=== PATIENT | female | born 2005 | race African-American/Black ===

== ENCOUNTER 2025-07-08 19:39 | Emergency (ER) | payer MEDICAID ==
[~2025-07-08] VITALS: Ht 160 cm; Wt 93.9 kg
--- NOTE | 2025-07-08 19:55 | ED.PDOC ---
GI ASSESSMENT HPI Comments 19 y.o female presents to the ED for a chief complaint of suprapubic pain that started one day ago. Patient describes pain as sharp, constant, non radiating and rating a 9/10 on the pain scale. Patient mentions having diarrhea 4 days ago but none the past 1-2 days. She denies any dysuria, hematuria, nausea, vomiting, fever, chills, vaginal discharge or bleeding. 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 MACHINE OPERATOR History Family History Family History: Reviewed,noncontributory to illness Social History Smoker: Non-Smoker Alcohol: Denies ETOH Use Drugs: Denies Drug Use Lives In: Home Constitutional: denies: chills, diaphoresis, fatigue, fever, malaise, sweats, weakness, others EENTM: denies: blurred vision, double vision, ear bleeding, ear discharge, ear drainage, ear pain, ear ringing, eye pain, eye redness, hearing loss, mouth pain, mouth swelling, nasal discharge, nose bleeding, nose congestion, nose pain, photophobia, tearing, throat pain, throat swelling, voice changes, others Respiratory: denies: cough, hemoptysis, orthopnea, SOB at rest, shortness of breath, SOB with excertion, stridor, wheezing, others Cardiovascular: denies: chest pain, dizzy spells, diaphoresis, Dyspnea on exertion, edema, irregular heart beat, left arm pain, lightheadedness, palpitations, PND, syncope, others Gastrointestinal: reports: abdominal pain; denies: abdomen distended, blood streaked bowels, constipated, diarrhea, dysphagia, difficulty swallowing, hematemesis, melena, nausea, poor appetite, poor fluid intake, rectal bleeding, rectal pain, vomiting, others Genitourinary: denies: abnormal vagina bleeding, burning, dyspareunia, dysuria, flank pain, frequency, hematuria, incontinence, pain, , vagina discharge, urgency, others Neurological: denies: dizziness, fainting, headache, left sided numbness, left sided weakness, numbness, paresthesia, pre-existing deficit, right sided numbness, right sided weakness, seizure, speech problems, tingling, tremors, weakness, others Musculoskeletal: denies: back pain, gout, joint pain, joint swelling, muscle pain, muscle stiffness, neck pain, others Integumetry: denies: bruises, change in color, change in hair/nails, dryness, laceration, lesions, lumps, rash, wounds, others Allergic/Immunocompromised: denies: Difficulty Healing, Frequent Infections, Hives, Itching, others Hematologic/Lymphatic: denies: anemia, blood clots, easy bleeding, easy bru ising, swollen glands, others Endocrine: denies: excessive hunger, excessive sweating, excessive thirst, e xcessive urination, flushing, intolerance to cold, intolerance to heat, unexplained weight gain, unexplained weight loss, others Psychiatric: denies: anxiety, bipolar disorder, depression, hopeless, panic disorder, schizophrenia, sleepless, suicidal, others All Other Systems: Reviewed and Negative Physical Exam General Appearance: Mild Distress HEENT: Normal ENT Inspection Neck: Normal Inspection Respiratory: No Accessory Muscle Use, No Respiratory Distress Cardiovascular: Normal Peripheral Pulses, Regular Rate/Rhythm Breast Exam: Deferred Gastrointestinal: No Pulsatile Mass, Suprapubic, Tenderness Genitalia: Deferred Pelvic: Deferred Rectal: Deferred Extremities: Normal inspection Neurologic: Alert, Normal Affect, Normal Mood Cerebellar Function: Unable to Test Reflexes: NOT DONE Skin: Dry, Normal Color, Warm Lymphatic: NOT DONE Was a procedure done? Was a procedure done?: No GI differential Dx Differential Diagnosis: Diverticular disease, Esophagitis, Gastroenteritis, Inflammatory BD, Ovarian cyst/torsion, PID, Electrolyte Imbalance, Viral X-Ray, Labs, Meds, VS Vital Signs Date Time Temp Pulse Resp B/P (MAP) Pulse Ox O2 Delivery O2 Flow Rate FiO2 07/08/25 23:00 98.7 89 14 99/59 (72) 95 98.7 07/08/25 19:42 99.5 92 19 104/71 97 99.5 Lab Test 07/08/25 20:16 Range/Units White Blood Count 12.4 H 4.4-10.8 10^3/uL Red Blood Count 4.34 4.0-5.20 10^6/uL Hemoglobin 13.1 12.2-16.2 g/dL Hematocrit 38.3 36.0-46.0 % Mean Corpuscular Volume 88.2 80.0-100.0 fL Mean Corpuscular Hemoglobin 30.0 28.0-32.0 pg Mean Corpuscular Hemoglobin Concent 34.1 32.0-36.0 g/dL Red Cell Distribution Width 13.8 11.8-14.3 % Platelet Count 356 140-450 10^3/uL Mean Platelet Volume 8.2 6.9-10.8 fL Neutrophils (%) (Auto) 55.5 37.0-80.0 % Lymphocytes (%) (Auto) 35.5 10.0-50.0 % Monocytes (%) (Auto) 5.1 0.0-12.0 % Eosinophils (%) (Auto) 3.3 0.0-7.0 % Basophils (%) (Auto) 0.6 0.0-2.0 % Neutrophils # (Auto) 6.9 1.6-8.6 10 ^3/uL Lymphocytes # (Auto) 4.4 0.4-5.4 10 ^3/uL Monocytes # (Auto) 0.6 0-1.3 10 ^3/uL Eosinophils # (Auto) 0.4 0-0.8 10 ^3/uL Basophils # (Auto) 0.1 0-0.2 10 ^3/uL Nucleated Red Blood Cells 0.0 % Sodium Level 142 136-145 mmol/L Potassium Level 4.0 3.5-5.1 mmol/L Chloride Level 108 H 98-107 mmol/L Carbon Dioxide Level 25 20-31 mmol/L Anion Gap 9 5-15 Blood Urea Nitrogen 7 L 9-23 mg/dL Creatinine 0.84 0.550-1.02 mg/dL Glomerular Filtration Rate Calc 103 >90 mL/min BUN/Creatinine Ratio 8.3 L 10.0-20.0 Serum Glucose 92 74-106 mg/dL Calcium Level 9.4 8.7-10.4 mg/dL Total Bilirubin 0.2 0.2-1.0 mg/dL Aspartate Amino Transferase (AST) 19 13-40 U/L Alanine Aminotransferase (ALT) 17 7-40 U/L Alkaline Phosphatase 73 46-116 U/L Total Protein 7.9 5.7-8.2 g/dL Albumin 4.9 H 3.2-4.8 g/dL Beta HCG, Quantitative < 0.0 L 1.5-4.2 mIU/mL Time of 1ST Reevaluation: 19:52 Reevaluation 1ST: Unchanged Patient Education/Counseling: Diagnosis, Treatment Family Education/Counseling: No Family Present SEPSIS Sepsis Screen Date sepsis recognized/suspect: Jul 08, 2025 Time Sepsis recognized/suspect: 1941 Recent Procedure: No On Antibiotic Therapy: No Respiratory Rate >20: No Heart Rate >90: No Temp<36 C (96.8 F) or >38.3 C: No SBP <90 or MAP <65 mmHG: No New Acute Mental Status Change: No Is the patient on CPAP, BIPAP,: No Physician Orders Urinalysis (07/08/25 19:55) Pelvic (07/08/25 19:55) Urine Bacterial Culture (07/08/25 19:55) Vital Signs Date Time Temp Pulse Resp B/P (MAP) Pulse Ox O2 Delivery O2 Flow Rate FiO2 07/08/25 23:00 98.7 89 14 99/59 (72) 95 98.7 07/08/25 19:42 99.5 92 19 104/71 97 99.5 Laboratory Tests Test 07/08/25 20:16 White Blood Count 12.4 10^3/uL (4.4-10.8) H Departure 1 Departure Time of Disposition: 00:11 Impression: Primary Impression: Abdominal pain Qualified Codes: R10.9 - Unspecified abdominal pain Disposition: 01 HOME / SELF CARE / HOMELESS Condition: Good Discharged With: Self Critical Care Note Critical Care Time?: No Stability Stability form required: No I personally scribed for NIESHA LOVE MD ([email or web address]) on 07/08/25 at 19:55. Electronically submitted by Ainsley Ramirez ([facility]). NIESHA LOVE MD Jul 08, 2025 19:55 CLAUDE HOOKER MD Jul 09, 2025 00:12
[2025-07-08 20:33] LABS: Hematocrit 38.3 % (36.0-46.0); Hemoglobin 13.1 g/dL (12.2-16.2); Mean Corpuscular Hemoglobin 30.0 pg (28.0-32.0); Mean Corpuscular Volume 88.2 fL (80.0-100.0); Nucleated Red Blood Cells % 0.0 %
[2025-07-08 20:48] LABS: Alanine Aminotransferase 17 U/L (7-40); Alkaline Phosphatase 73 U/L (46-116); Anion Gap 9 (5-15); BUN/Creatinine Ratio 8.3 (10.0-20.0); Calcium 9.4 mg/dL (8.7-10.4); Carbon Dioxide 25 mmol/L (20-31); Glucose 92 mg/dL (74-106); Potassium 4.0 mmol/L (3.5-5.1); Sodium 142 mmol/L (136-145); Total Protein 7.9 g/dL (5.7-8.2)
[2025-07-08 20:50] LABS: Albumin 4.9 g/dL (3.2-4.8); Bilirubin, Total 0.2 mg/dL (0.2-1.0); Blood Urea Nitrogen 7 mg/dL (9-23); Chloride 108 mmol/L (98-107)
--- NOTE | 2025-07-08 21:20 | DVH ---
INDICATION: suprapubic pelvic pain TECHNIQUE: Multiple real-time grayscale transabdominal sonographic images along with color and duplex Doppler of the uterus and ovaries were obtained. COMPARISON: None FINDINGS: The uterus measures 5.9 x 2.3 x 3 cm. The endometrial stripe measures 4 mm. The right ovary measures 2.4 x 1.9 x 2.0 cm. 4.6 cc volume of the right ovary The left ovary measures 2.6 x 1.7 x 1.6 cm. Left ovary is 3.9 cc volume. Anechoic lesion left ovary measuring 1.6 x 1.5 x 1.1 cm Subsequent color and duplex Doppler interrogation of the ovaries demonstrated symmetric vascular flow to both ovaries, though this does not exclude the possibility of torsion due to the dual blood suppl y. IMPRESSION: 1. 1.6 x 1.5 cm anechoic lesion left ovary consistent with a follicle.
[2025-07-08 23:00] VITALS: BP 99/59; PULSE 89; RESP 14; TEMP 98.7; O2SAT 95
== END 2025-07-09 00:32 | disposition home or self-care (01) ==
LOC: ER 19:39
DX: R10.30 Lower abdominal pain, unspecified (principal); R10.2 Pelvic and perineal pain; Z79.899 Other long term (current) drug therapy
CPT/HCPCS: 36415; 76856; 80053; 84702; 85025

== ENCOUNTER 2025-07-10 20:39 | Emergency (ER) | payer MEDICAID ==
[~2025-07-10] VITALS: Ht 162.6 cm; Wt 94.5 kg
[2025-07-10 21:40] LABS: Hematocrit 37.8 % (36.0-46.0); Hemoglobin 12.9 g/dL (12.2-16.2); Mean Corpuscular Hemoglobin 30.0 pg (28.0-32.0); Mean Corpuscular Volume 87.7 fL (80.0-100.0); Nucleated Red Blood Cells % 0.0 %
--- NOTE | 2025-07-10 21:41 | ED.PDOC ---
[employer] HPI Comments HPI: 19-year-old female presents to the emergency department with a chief complaint of pelvic pain onset 3 days. Patient was seen 07/08/2025 this ED for same symptoms, was discharged home. Patient states pain has not improved, has worsened. She describes pain as a constant located in mid pelvic region radiates to vagina. She is sexually active, not concerned for . Denies dysuria, hematuria, fevers, chills, nausea, vomiting, diarrhea, chest pain, shortness of breath, dizziness, headache. No other symptoms or modifying factors present at this time. Initial Vitals BP: 104/65 HR: 98 RR: 15 O2: 97% Temp: 99.0F Past Medical History: denies Past Surgical History: denies Social History: Denies ETOH, smoking, and drug use. Medications: denies Allergies: NKDA HPI: Poor Historian. REVIEW OF SYSTEMS: CONSTITUTIONAL: Denies acute: fever, diaphoresis, chills, generalized weakness. HEAD: Denies acute: headache, photophobia Eyes: Denies acute: Double vision, vision loss, eye pain, eye discharge. EARS: Denies acute: tinnitus, hearing loss, ear discharge, ear pain, THROAT: Denies acute: sore throat, swelling, difficulty swallowing , pain with swallowing, change in voice. NECK: Denies acute: neck pain, neck swelling, stiff neck. HEART: Denies acute : chest pain, palpitations, LUNGS: Denies acute: SOB, wheezing, cough, hemoptysis ABDOMEN: Denies acute: Nausea, Vomiting, diarrhea, melena , hematemesis, hematochezia SKIN: Denies acute: rash, redness, lesions, itchiness. EXTREMITIES: Denies acute: calf pain, numbness, tingling, weakness, denies pain in extremity. Denies acute: Low back pain. Neuro: Denies acute: focal neurological deficit, motor or sensory focal neurological d eficit, tremors, seizure like activity, confusion, dizziness, change in mental status, loss of bowel or bladder function, cauda equina like symptoms. : Denies acute: dysuria, hematuria, flank pain, increase in urinary frequency. PSYCH: Denies acute: hallucination, suicidal ideation, homicidal ideation. FEMALE: Denies acute: abnormal vaginal bleeding, foul odor, unusual discharge. PHYSICAL EXAM: General: ----[id number]----acute distress, awake and alert. Head: normocephalic, atraumatic. Neck: supple, trachea is midline, no swelling. Throat: Normal phonation. Eyes:, no erythema, no purulent discharge, no proptosis, no icterus. Heart: regular rate, regular rhythm, no significant murmur appreciated. Lungs: no apparent respiratory distress, Able to speak in full sentences. No wheezing, no rhonchi, no crackles. No stridors Clear to auscultation bilaterally. Abdomen: Suprapubic tender to palpation, non distended, soft, no guarding, no rebound, + bowel sounds. Obese Neuro: Awake, Alert, oriented to name, self, situation, follows commands GCS=15. Speech is normal. Skin: no petechia, no purpura, no cyanosis, non-pale, not jaundice. Lower extremities: --no - Pitting edema no deformity, no focal swelling, no calf TTP. Makes eye contact. moves all four extremities. Face: no apparent facial droop. Ambulating in the ED independently. ED COURSE: DISCLAIMER: This medical document was created using an electronic medical record system with voice recognition software and computerized dictation system. Although this document has been carefully reviewed, there might still be some phonetic and typographical errors. Occasional wrong-word or "sound-alike" substitutions may have occurred due to the inherent limitations of voice recognition software. These areas are purely typographical due to imperfections of the software programs and do not reflect any compromise in the patient's medical care. Please read the chart carefully and recognize, using context, where these substitutions have occurred. Chief Complaint: Pelvic Pain Time Seen by MD: 21:25 Reviewed Notes: Medications, Allergies Allergies: Coded Allergies: NO KNOWN ALLERGIES (Unverified , 07/08/25) Information Source: Patient Mode of Arrival: Ambulatory Prehospital treatment: None Severity: Moderate Vaginal Discharge: None Vaginal Lesions: None Vaginal Mass: None Associated Signs and Symptoms: Other Past Medical History PAST MEDICAL HISTORY: Denies Surgical History: Denies all surgeries BRAND ANALYST History: No Pertinent BRAND ANALYST History Family History Family History: Reviewed,noncontributory to illness Social History Smoker: Non-Smoker Alcohol: Denies ETOH Use Drugs: Denies Drug Use Lives In: Home Was a procedure done? Was a procedure done?: No Differential Diagnosis (BRAND ANALYST) Vaginal Bleeding: Other (DDX include Diverticulitis, colitis, gastroenteritis, acute abdomen, SBO, enteritis, constipation, volvulus, appendicitis, Gallbladder disease, choledocolithiasis, ascending cholangitis, pancreatitis, intraAbdominal mass/neoplasm, hepatitis, UTI, pylonephritis, kidney stone, aneurysm, dissection, Inflammatory bowel disease, gastroparesis, ischemic bowel, ovarian torsion, ovarian cyst/mass, tubo-ovarian abscess, , ectopic , PID, STD.), N/A X-Ray, Labs, Meds, VS Vital Signs Date Time Temp Pulse Resp B/P (MAP) Pulse Ox O2 Delivery O2 Flow Rate FiO2 07/11/25 03:39 81 20 97 Room Air 07/11/25 03:00 98.2 81 20 121/67 (85) 97 98.2 07/10/25 20:42 99.0 98 15 104/65 97 99.0 Lab Test 07/10/25 23:20 07/10/25 21:11 Range/Units Urine Color Yellow Yellow Urine Clarity Clear Clear Urine pH 6.0 5.0-9.0 Urine Specific Greer 1.036 H 1.001-1.035 Urine Protein Trace H Negative Urine Ketones Negative Negative Urine Blood 3+ H Negative /uL Urine Nitrite Negative Negative Urine Bilirubin Negative Negative Urine Urobilinogen Normal Negative mg/dL Urine Leukocyte Esterase Negative Negative /uL Urine RBC 24 0 - 4 /hpf Urine Microscopic WBC 3 0-5 /HPF Urine Squamous Epithelial Cells Few <5 /hpf Urine Bacteria None seen None Seen /hpf Urine Mucus Few None Seen Urine Glucose Normal Normal mg/dL Urine Test Negative Negative White Blood Count 11.7 H 4.4-10.8 10^3/uL Red Blood Count 4.31 4.0-5.20 10^6/uL Hemoglobin 12.9 12.2-16.2 g/dL Hematocrit 37.8 36.0-46.0 % Mean Corpuscular Volume 87.7 80.0-100.0 fL Mean Corpuscular Hemoglobin 30.0 28.0-32.0 pg Mean Corpuscular Hemoglobin Concent 34.2 32.0-36.0 g/dL Red Cell Distribution Width 13.8 11.8-14.3 % Platelet Count 340 140-450 10^3/uL Mean Platelet Volume 8.2 6.9-10.8 fL Neutrophils (%) (Auto) 57.5 37.0-80.0 % Lymphocytes (%) (Auto) 33.5 10.0-50.0 % Monocytes (%) (Auto) 5.9 0.0-12.0 % Eosinophils (%) (Auto) 2.6 0.0-7.0 % Basophils (%) (Auto) 0.5 0.0-2.0 % Neutrophils # (Auto) 6.7 1.6-8.6 10 ^3/uL Lymphocytes # (Auto) 3.9 0.4-5.4 10 ^3/uL Monocytes # (Auto) 0.7 0-1.3 10 ^3/uL Eosinophils # (Auto) 0.3 0-0.8 10 ^3/uL Basophils # (Auto) 0.1 0-0.2 10 ^3/uL Nucleated Red Blood Cells 0.0 % Sodium Level 142 136-145 mmol/L Potassium Level 3.6 3.5-5.1 mmol/L Chloride Level 108 H 98-107 mmol/L Carbon Dioxide Level 24 20-31 mmol/L Anion Gap 10 5-15 Blood Urea Nitrogen 8 L 9-23 mg/dL Creatinine 0.81 0.550-1.02 mg/dL Glomerular Filtration Rate Calc 107 >90 mL/min BUN/Creatinine Ratio 9.9 L 10.0-20.0 Serum Glucose 73 L 74-106 mg/dL Calcium Level 9.8 8.7-10.4 mg/dL Total Bilirubin 0.2 0.2-1.0 mg/dL Aspartate Amino Transferase (AST) 19 13-40 U/L Alanine Aminotransferase (ALT) 14 7-40 U/L Alkaline Phosphatase 72 46-116 U/L Total Protein 7.7 5.7-8.2 g/dL Albumin 5.1 H 3.2-4.8 g/dL [address] [address] Ph: [phone] DIAGNOSTIC IMAGING Diagnostic Imaging Report : [id number] Signed PATIENT: MICHAEL BREWSTER ACCT: [id number] UNIT: [id number] : 2005 LOC: ER ROOM / BED: / AGE / SEX: 19 / F ADM STATUS: REG ER SERVICE 07 ORDERING PHYSICIAN: LENOILA JACK DO PROCEDURE(s): PELTR - TRANSVAGINAL US NON OB REASON: PELVIC PAIN ORDER NUMBER(s): [id number], ACCESSION NUMBER(s): [id number] PELVIC ULTRASOUND WITH TRANSABDOMINAL AND TRANSVAGINAL IMAGING CLINICAL HISTORY: pelvic pain COMPARISON: US PELVIC on DOS: 07/08/25 TECHNIQUE: Transabdominal and transvaginal grayscale, color-flow Doppler, and duplex Doppler was performed. FINDINGS: The uterus measures approximately 6.3 x 2.7 x 2.5 cm. Endometrial thickness 4 mm. Right ovary measures 3.2 x 2.1 x 2.5 cm. Left ovary measures 2.9 x 1.5 x 2.5 cm. Both ovaries demonstrate multiple small follicles. Both ovaries also demonstrate dopplerable blood flow on spectral analysis. No free fluid identified in the cul-de-sac. IMPRESSION: No acute findings as visualized. Bilateral ovarian follicles. ATED BY: RICARDO LEVINE MD DICTATED DATE/TIME: 07/10/252258 SIGNED BY: RICARDO LEVINE MD SIGNED DATE/TIME: 07/10/252258 CC: [place] [id number] Ph: [phone] DIAGNOSTIC IMAGING Diagnostic Imaging Report : [id number] Signed PATIENT: MICHAEL BREWSTER ACCT: [id number] UNIT: [id number] : 2005 LOC: ER ROOM / BED: / AGE / SEX: 19 / F ADM STATUS: REG ER SERVICE 57 ORDERING PHYSICIAN: LEONILA JACK DO PROCEDURE(s): PELUS - PELVIC REASON: pelvic pain ORDER NUMBER(s): [id number], ACCESSION NUMBER(s): [id number] PELVIC ULTRASOUND WITH TRANSABDOMINAL AND TRANSVAGINAL IMAGING CLINICAL HISTORY: pelvic pain COMPARISON: US PELVIC on DOS: 07/08/25 TECHNIQUE: Transabdominal and transvaginal grayscale, color-flow Doppler, and duplex Doppler was performed. FINDINGS: The uterus measures approximately 6.3 x 2.7 x 2.5 cm. Endometrial thickness 4 mm. Right ovary measures 3.2 x 2.1 x 2.5 cm. Left ovary measures 2.9 x 1.5 x 2.5 cm. Both ovaries demonstrate multiple small follicles. Both ovaries also demonstrate dopplerable blood flow on spectral analysis. No free fluid identified in the cul-de-sac. IMPRESSION: No acute findings as visualized. Bilateral ovarian follicles. ATED BY: RICARDO LEVINE MD DICTATED DATE/TIME: 07/10/252258 SIGNED BY: RICARDO LEVINE MD SIGNED DATE/TIME: 07/10/252258 CC: [place] [id number] Ph: [phone] DIAGNOSTIC IMAGING Diagnostic Imaging Report : [id number] Signed PATIENT: MICHAEL BREWSTER ACCT: [id number] UNIT: [id number] : 2005 LOC: ER ROOM / BED: / AGE / SEX: 19 / F ADM STATUS: REG ER SERVICE 0143 ORDERING PHYSICIAN: LEONILA JACK DO PROCEDURE(s): ABPL - CT AB PEL WO CON-NO ORAL OR IV REASON: pelvic pain ORDER NUMBER(s): [id number], ACCESSION NUMBER(s): [id number] Exam: CT CT AB PEL WO CON-NO ORAL OR IV History: pelvic pain Comparison Study: None Technique: Multidetector spiral CT of the abdomen was performed from lung bases to pubic symphysis. Imaging was performed without IV contrast. Axial, coronal and sagittal multiplanar reformats were obtained from the axial data set by the technologist. Radiation Dose : 1. Abdomen/Pelvis: CTDIvol 12.55 mGy, DLP 3.92 mGy*cm. Findings: Evaluation of solid organs is limited due to lack of intravenous contrast use. Lower Chest: No acute findings. Liver: Unremarkable. Gallbladder and Biliary Tree: Unremarkable Pancreas: Unremarkable. Spleen: Unremarkable. Adrenal Glands: Unremarkable. Kidneys/Ureters: No urinary stone or obstruction. Bilateral lobular renal contours. Bladder: Grossly unremarkable for degree of distention. Pelvic Organs: Unremarkable Bowel: Normal caliber without wall thickening. No evidence of appendicitis. Vasculature: Unremarkable. Lymphadenopathy: No obvious adenopathy. Peritoneum: No ascites, free air, or fluid collection. Abdominal Wall: No significant hernia. Musculoskeletal: No acute findings. IMPRESSION: 1. No acute abdominopelvic abnormality, evidence of urinary stone or obstruction. Radiation optimization: All CT scans at this facility use at least one of these dose optimization techniques: automated exposure control mA and/or kV adjustment per patient size (includes targeted exams where dose is matched to clinical indication) or iterative reconstruction. ATED BY: TERRIE COX MD DICTATED DATE/TIME: 07/11/25220 SIGNED BY: TERRIE COX MD SIGNED DATE/TIME: 07/11/25220 CC: Time of 1ST Reevaluation: 21:55 Reevaluation 1ST: Unchanged Patient Education/Counseling: Diagnosis, Treatment Family Education/Counseling: No Family Present Comments MDM: patient presented with the above HPI.--pelvic pain----workup was initiated. patient was found with the above mentioned diagnosis. the following medications were ordered: please refer to order lists of meds and tests obtained by myself Dr. Jack. Patient ED course and VS have been stabilized. Patient has been reassessed in the ED and remained in a stable condition. Pertinent incidental findings were discussed with the patient and/or family. Patient/family voices understanding and is agreeable with plan. Patient has been observed in the ED adequate length of time to insure improvement/stability. Escalation of care considered: Consideration of escalation to observation or admission Pelvic ultrasound and CT scan of the abdomen and pelvis were obtained. Patient was DISCHARGED home in a stable condition. All the reports of any imaging studies that were ordered by myself were reviewed by myself. Departure 1 Departure Time of Disposition: 02:31 Impression: Primary Impression: Pelvic pain Disposition: 01 HOME / SELF CARE / HOMELESS Condition: Stable Additional Instructions: ADDITIONAL INSTRUCTIONS: PLEASE READ ALL INSTRUCTIONS PROVIDED IN THIS PACKET CAREFULLY. YOU MUST FOLLOW-UP WITH YOUR PRIMARY CARE/FAMILY DOCTOR IN 1 TO 2 DAYS. IF YOU ARE UNABLE TO SEE YOUR PRIMARY CARE/FAMILY DOCTOR, PLEASE RETURN TO OUR EMERGENCY ROOM FOR RE-ASSESSMENT AND RE-EVALUATION IN 1 TO 2 DAYS. RETURN TO THE EMERGENCY ROOM HERE IN OUR FACILITY OR TO THE NEAREST ER [facility] IF YOUR SYMPTOMS CHANGE OR WORSEN. CONSULTATIONS: YOU MUST FOLLOW-UP FOR CONSULTATION SOON POSSIBLE WITH: --[facility] DOCTOR IN 1-2 DAYS. PLEASE CALL FOR APPOINTMENT YOU MUST CALL THE CONSULTANTS OFFICE YOURSELF TO MAKE AN APPOINTMENT. YOU MAY N EED TO ARRANGE THAT THROUGH YOUR INSURANCE AND/OR YOUR PRIMARY/FAMILY DOCTOR. IF YOU ARE UNABLE TO SEE THE WASTE PAPER HAMMERMILL OPERATOR IN 1 TO 2 DAYS, YOU MUST RETURN TO OUR EMERGENCY ROOM (OR ANY OTHER ER OF YOUR CHOICE) FOR RE-ASSESSMENT AND RE- EVALUATION. ADEQUATE FLUID HYDRATION. ALTHOUGH YOU HAVE BEEN DISCHARGED FROM THE EMERGENCY DEPARTMENT, THIS DOES NOT MEAN THAT YOU HAVE A "CLEAN BILL OF HEALTH". NO DEFINITIVE DIAGNOSIS FOR YOUR SYMPTOMS HAS BEEN MADE TODAY. IT IS POSSIBLE THAT YOU ARE IN THE PROCESS OF DEVELOPING A SERIOUS ILLNESS. THIS IS WHY YOU MUST RETURN TO THE ED WITHOUT FAIL IF ANY NEW OR WORSENING SYMPTOMS DEVELOP. ABSOLUTE PELVIC REST. BELOW IS A COPY OF YOUR RADIOLOGICAL REPORT FOR FOLLOW UP: [place] [id number] Ph: [phone] DIAGNOSTIC IMAGING Diagnostic Imaging Report : [id number] Signed PATIENT: MICHAEL BREWSTER ACCT: [id number] UNIT: [id number] : 2005 LOC: ER ROOM / BED: / AGE / SEX: 19 / F ADM STATUS: REG ER SERVICE 0143 ORDERING PHYSICIAN: LEONILA JACK DO PROCEDURE(s): ABPL - CT AB PEL WO CON-NO ORAL OR IV REASON: pelvic pain ORDER NUMBER(s): [id number], ACCESSION NUMBER(s): [id number] Exam: CT CT AB PEL WO CON-NO ORAL OR IV History: pelvic pain Comparison Study: None Technique: Multidetector spiral CT of the abdomen was performed from lung bases to pubic symphysis. Imaging was performed without IV contrast. Axial, coronal and sagittal multiplanar reformats were obtained from the axial data set by the technologist. Radiation Dose : 1. Abdomen/Pelvis: CTDIvol 12.55 mGy, DLP 3.92 mGy*cm. Findings: Evaluation of solid organs is limited due to lack of intravenous contrast use. Lower Chest: No acute findings. Liver: Unremarkable. Gallbladder and Biliary Tree: Unremarkable Pancreas: Unremarkable. Spleen: Unremarkable. Adrenal Glands: Unremarkable. Kidneys/Ureters: No urinary stone or obstruction. Bilateral lobular renal contours. Bladder: Grossly unremarkable for degree of distention. Pelvic Organs: Unremarkable Bowel: Normal caliber without wall thickening. No evidence of appendicitis. Vasculature: Unremarkable. Lymphadenopathy: No obvious adenopathy. Peritoneum: No ascites, free air, or fluid collection. Abdominal Wall: No significant hernia. Musculoskeletal: No acute findings. IMPRESSION: 1. No acute abdominopelvic abnormality, evidence of urinary stone or obstruction. Radiation optimization: All CT scans at this facility use at least one of these dose optimization techniques: automated exposure control mA and/or kV adjustment per patient size (includes targeted exams where dose is matched to clinical indication) or iterative reconstruction. ATED BY: TERRIE COX MD DICTATED DATE/TIME: 07/11/25220 SIGNED BY: TERRIE COX MD SIGNED DATE/TIME: 07/11/25220 CC: [place] [id number] Ph: [phone] DIAGNOSTIC IMAGING Diagnostic Imaging Report : [id number] Signed PATIENT: MICHAEL BREWSTER ACCT: [id number] UNIT: [id number] : 2005 LOC: ER ROOM / BED: / AGE / SEX: 19 / F ADM STATUS: REG ER SERVICE 07 ORDERING PHYSICIAN: LEONILA JACK DO PROCEDURE(s): PELTR - TRANSVAGINAL US NON OB REASON: PELVIC PAIN ORDER NUMBER(s): [id number], ACCESSION NUMBER(s): [id number] PELVIC ULTRASOUND WITH TRANSABDOMINAL AND TRANSVAGINAL IMAGING CLINICAL HISTORY: pelvic pain COMPARISON: US PELVIC on DOS: 07/08/25 TECHNIQUE: Transabdominal and transvaginal grayscale, color-flow Doppler, and duplex Doppler was performed. FINDINGS: The uterus measures approximately 6.3 x 2.7 x 2.5 cm. Endometrial thickness 4 mm. Right ovary measures 3.2 x 2.1 x 2.5 cm. Left ovary measures 2.9 x 1.5 x 2.5 cm. Both ovaries demonstrate multiple small follicles. Both ovaries also demonstrate dopplerable blood flow on spectral analysis. No free fluid identified in the cul-de-sac. IMPRESSION: No acute findings as visualized. Bilateral ovarian follicles. ATED BY: RICARDO LEVINE MD DICTATED DATE/TIME: 07/10/252258 SIGNED BY: RICARDO LEVINE MD SIGNED DATE/TIME: 07/10/252258 CC: [place] [id number] Ph: [phone] DIAGNOSTIC IMAGING Diagnostic Imaging Report : [id number] Signed PATIENT: MICHAEL BREWSTER ACCT: [id number] UNIT: [id number] : 2005 LOC: ER ROOM / BED: / AGE / SEX: 19 / F ADM STATUS: REG ER SERVICE 57 ORDERING PHYSICIAN: LEONILA JACK DO PROCEDURE(s): PELUS - PELVIC REASON: pelvic pain ORDER NUMBER(s): [id number], ACCESSION NUMBER(s): [id number] PELVIC ULTRASOUND WITH TRANSABDOMINAL AND TRANSVAGINAL IMAGING CLINICAL HISTORY: pelvic pain COMPARISON: US PELVIC on DOS: 07/08/25 TECHNIQUE: Transabdominal and transvaginal grayscale, color-flow Doppler, and duplex Doppler was performed. FINDINGS: The uterus measures approximately 6.3 x 2.7 x 2.5 cm. Endometrial thickness 4 mm. Right ovary measures 3.2 x 2.1 x 2.5 cm. Left ovary measures 2.9 x 1.5 x 2.5 cm. Both ovaries demonstrate multiple small follicles. Both ovaries also demonstrate dopplerable blood flow on spectral analysis. No free fluid identified in the cul-de-sac. IMPRESSION: No acute findings as visualized. Bilateral ovarian follicles. ATED BY: RICARDO LEVINE MD DICTATED DATE/TIME: 07/10/252258 SIGNED BY: RICARDO LEVINE MD SIGNED DATE/TIME: 07/10/252258 Discharged With: Self Critical Care Note Critical Care Time?: No I personally scribed for LEONILA JACK DO ([email or web address]) on 07/10/25 at 21:41. Electronically submitted by Martina Garcia ([email or web address]). I personally scribed for LEONILA JACK DO ([email or web address]) on 07/10/25 at 22:04. Electronically submitted by Martina Garcia ([email or web address]). I personally scribed for LEONILA JACK DO ([email or web address]) on 07/10/25 at 23:44. Electronically submitted by Martina Garcia ([email or web address]). I personally scribed for LEONILA JACK DO ([email or web address]) on 07/11/25 at 02:27. Electronically submitted by Martina Garcia ([email or web address]). LEONILA JACK DO Jul 10, 2025 21:41
[2025-07-10 21:58] LABS: Alanine Aminotransferase 14 U/L (7-40); Alkaline Phosphatase 72 U/L (46-116); Anion Gap 10 (5-15); BUN/Creatinine Ratio 9.9 (10.0-20.0); Calcium 9.8 mg/dL (8.7-10.4); Carbon Dioxide 24 mmol/L (20-31); Potassium 3.6 mmol/L (3.5-5.1); Sodium 142 mmol/L (136-145); Total Protein 7.7 g/dL (5.7-8.2)
[2025-07-10 22:03] LABS: Albumin 5.1 g/dL (3.2-4.8); Bilirubin, Total 0.2 mg/dL (0.2-1.0); Blood Urea Nitrogen 8 mg/dL (9-23); Chloride 108 mmol/L (98-107); Glucose 73 mg/dL (74-106)
--- NOTE | 2025-07-10 23:01 | DVH ---
PELVIC ULTRASOUND WITH TRANSABDOMINAL AND TRANSVAGINAL IMAGING CLINICAL HISTORY: pelvic pain COMPARISON: US PELVIC on DOS: 07/08/25 TECHNIQUE: Transabdominal and transvaginal grayscale, color-flow Doppler, and duplex Doppler was per formed. FINDINGS: The uterus measures approximately 6.3 x 2.7 x 2.5 cm. Endometrial thickness 4 mm. Right ovary measures 3.2 x 2.1 x 2.5 cm. Left ovary measures 2.9 x 1.5 x 2.5 cm. Both ovaries demons trate multiple small follicles. Both ovaries also demonstrate dopplerable blood flow on spectral anal ysis. No free fluid identified in the cul-de-sac. IMPRESSION: No acute findings as visualized. Bilateral ovarian follicles.
[2025-07-10 23:41] LABS: Urine Protein, UAD TRACE (Negative)
--- NOTE | 2025-07-11 02:23 | DVH ---
Exam: CT CT AB PEL WO CON-NO ORAL OR IV History: pelvic pain Comparison Study: None Technique: Multidetector spiral CT of the abdomen was performed from lung bases to pubic symphysis. I maging was performed without IV contrast. Axial, coronal and sagittal multiplanar reformats were obta ined from the axial data set by the technologist. Radiation Dose : 1. Abdomen/Pelvis: CTDIvol 12.55 mGy, DLP 3.92 mGy*cm. Findings: Evaluation of solid organs is limited due to lack of intravenous contrast use. Lower Chest: No acute findings. Liver: Unremarkable. Gallbladder and Biliary Tree: Unremarkable Pancreas: Unremarkable. Spleen: Unremarkable. Adrenal Glands: Unremarkable. Kidneys/Ureters: No urinary stone or obstruction. Bilateral lobular renal contours. Bladder: Grossly unremarkable for degree of distention. Pelvic Organs: Unremarkable Bowel: Normal caliber without wall thickening. No evidence of appendicitis. Vasculature: Unremarkable. Lymphadenopathy: No obvious adenopathy. Peritoneum: No ascites, free air, or fluid collection. Abdominal Wall: No significant hernia. Musculoskeletal: No acute findings. IMPRESSION: 1. No acute abdominopelvic abnormality, evidence of urinary stone or obstruction. Radiation optimization: All CT scans at this facility use at least one of these dose optimization matt hniques: automated exposure control mA and/or kV adjustment per patient size (includes targeted exam s where dose is matched to clinical indication) or iterative reconstruction.
[2025-07-11 03:00] VITALS: BP 121/67; TEMP 98.2
[2025-07-11] MEDS: KETOROLAC TROMETH 30 MG/ML 1ML VIAL IM ONE (03:37)
[2025-07-11 03:39] VITALS: PULSE 81; RESP 20; O2SAT 97
== END 2025-07-11 03:31 | disposition home or self-care (01) ==
LOC: ER 20:39
DX: R10.2 Pelvic and perineal pain (principal)
CPT/HCPCS: 36415; 74176; 76830; 76856; 80053; 81001; 81025; 85025; 96372; 99285; J1885

== ENCOUNTER 2025-10-07 14:52 | Emergency (ER) | payer MEDICAID ==
[~2025-10-07] VITALS: Ht 162.6 cm; Wt 92.4 kg
[2025-10-07 14:56] VITALS: BP 124/69; PULSE 75; RESP 16; TEMP 98.2; O2SAT 100
== END 2025-10-07 16:39 | disposition left against medical advice (07) ==
LOC: ER 14:52
DX: F41.9 Anxiety disorder, unspecified (principal); Z53.21 Procedure and treatment not carried out due to patient leaving prior to being seen by health care provider

== ENCOUNTER 2025-10-31 09:06 | Emergency (ER) | payer MEDICAID ==
[~2025-10-31] VITALS: Ht 160 cm; Wt 93.0 kg
--- NOTE | 2025-10-31 09:39 | ED.PDOC ---
Musculoskeletal HPI Comments A 20 YEAR OLD FEMALE PRESENTS TO THE ED WITH COMPLAINT OF RIGHT WRIST PAIN. PATIENT REPORTS THAT SHE HAD BEEN LIFTING A HEAVY BOX YESTERDAY WHEN SHE ACCIDENTALLY DROPPED IT, CAUSING IT TO FALL ONTO HER RIGHT WRIST/HAND. PATIENT RELAYS THAT SINCE THEN, SHE HAS BEEN EXPERIENCING PAIN AND SWELLING TO THE RIGHT WRIST REGION. PATIENT DENIES NUMBNESS, WEAKNESS, TINGLING, FURTHER INJURY, HEADACHE, OR OTHER COMPLAINTS. NO OTHER SYMPTOMS OR MODIFYING FACTORS AT THIS TIME. PATIENT IS ALERT, ORIENTED X 4, AND HAS STEADY GAIT. Chief Complaint: Upper Extremity Time Seen by MD: 09:37 Reviewed Notes: Nurses Notes, Medications, Allergies Allergies: Coded Allergies: NO KNOWN ALLERGIES (Unverified , 07/08/25) Home Meds Active Scripts Naproxen (Naproxen) 500 Mg Tab, 500 MG PO BID, #30 TAB Prov:CRISTOBAL TRUJILLO 10/31/25 Information Source: Patient Mode of Arrival: Ambulatory Location: Right Extremity Location: Wrist Timing: Days Prehospital treatment: None Severity: Moderate Able to Move Extremity: Yes Bear Weight: Fully Pain: Moderate Mechanism: Blunt Trauma Circumstances: Accident Onset of Symptoms: After Trauma Symptoms: Swelling, Pain DVT Risk Factors: NONE Associated signs and symptoms: None Past Medical History PAST MEDICAL HISTORY: Denies Surgical History: Denies all surgeries INFO SPECIALIST History: No Pertinent INFO SPECIALIST History Family History Family History: Reviewed,noncontributory to illness Social History Smoker: Non-Smoker Alcohol: Denies ETOH Use Drugs: Denies Drug Use Lives In: Home Constitutional: denies: chills, diaphoresis, fatigue, fever, malaise, sweats, weakness, others EENTM: denies: blurred vision, double vision, ear bleeding, ear discharge, ear drainage, ear pain, ear ringing, eye pain, eye redness, hearing loss, mouth pain, mouth swelling, nasal discharge, nose bleeding, nose congestion, nose pain, photophobia, tearing, throat pain, throat swelling, voice changes, others Respiratory: denies: cough, hemoptysis, orthopnea, SOB at rest, shortness of breath, SOB with excertion, stridor, wheezing, others Cardiovascular: denies: chest pain, dizzy spells, diaphoresis, Dyspnea on exertion, edema, irregular heart beat, left arm pain, lightheadedness, palpitations, PND, syncope, others Gastrointestinal: denies: abdomen distended, abdominal pain, blood streaked bowels, constipated, diarrhea, dysphagia, difficulty swallowing, hematemesis, melena, nausea, poor appetite, poor fluid intake, rectal bleeding, rectal pain, vomiting, others Genitourinary: denies: abnormal vagina bleeding, burning, dyspareunia, dysuria, flank pain, frequency, hematuria, incontinence, pain, , vagina discharge, urgency, others Neurological: denies: dizziness, fainting, headache, left sided numbness, left sided weakness, numbness, paresthesia, pre-existing deficit, right sided numbness, right sided weakness, seizure, speech problems, tingling, tremors, weakness, others Musculoskeletal: reports: joint pain, joint swelling, others (RIGHT WRIST PAIN); denies: back pain, gout, muscle pain, muscle stiffness, neck pain Integumetry: denies: bruises, change in color, change in hair/nails, dryness, laceration, lesions, lumps, rash, wounds, others Allergic/Immunocompromised: denies: Difficulty Healing, Frequent Infections, Hives, Itching, others Hematologic/Lymphatic: denies: anemia, blood clots, easy bleeding, easy bruising, swollen glands, others Endocrine: denies: excessive hunger, excessive sweating, excessive thirst, excessive urination, flushing, intolerance to cold, intolerance to heat, unexplained weight gain, unexplained weight loss, others Psychiatric: denies: anxiety, bipolar disorder, depression, hopeless, panic disorder, schizophrenia, sleepless, suicidal, others All Other Systems: Reviewed and Negative Physical Exam General Appearance: No Apparent Distress, Normal HEENT: Normal ENT Inspection, PERRL/EOMI, Pharynx Normal Neck: Full Range of Motion, Non-Tender, Normal, Normal Inspection Respiratory: Chest Non-Tender, Lungs Clear, No Accessory Muscle Use, No Respiratory Distress, Normal Breath Sounds Cardiovascular: No Edema, No JVD, No Murmur, No Gallop, Normal Peripheral Pulses, Regular Rate/Rhythm Breast Exam: Deferred Gastrointestinal: No Organomegaly, Non Tender, No Pulsatile Mass, Normal Bowel Sounds, Soft Genitalia: Deferred Pelvic: Deferred Rectal: Deferred Extremities: Decreased range of motion (SLIGHTLY. ), No calf tenderness, Normal capillary refill, No pedal edema, Tender (AND MILD SWELLING ON RIGHT WRIST, NO BONY TENDERNESS AND DEFORMITY. ) Musculoskeletal : Apperance: Normal Neurologic: Alert, elderly caregiver II-XII nml as Tested, No Motor Deficits, Normal Affect, Normal Mood, No Sensory Deficits Cerebellar Function: Normal Reflexes: Normal Skin: Dry, Normal Color, Warm Peripheral Pulses: 2+ carotid (R), 2+ carotid (L), 2+ Radial (R), 2+ Radial (L) Lymphatic: No Adenopathy Was a procedure done? Was a procedure done?: No Differential Diagnosis EXT Differential Diagnosis: Fracture, Sprain, Contusion, Strain, Bursitis X-Ray, Labs, Meds, VS Vital Signs Date Time Temp Pulse Resp B/P (MAP) Pulse Ox O2 Delivery O2 Flow Rate FiO2 10/31/25 10:37 98.1 97 18 131/66 (87) 98 98.1 10/31/25 09:09 97.0 91 18 108/78 98 97.0 [place] [id number] Ph: [phone] DIAGNOSTIC IMAGING Diagnostic Imaging Report : [id number] Signed PATIENT: MICHAEL BREWSTER ACCT: [id number] UNIT: [id number] : 2005 LOC: ER ROOM / BED: / AGE / SEX: 20 / F ADM STATUS: REG ER SERVICE 0 ORDERING PHYSICIAN: CRISTOBAL TRUJILLO PROCEDURE(s): RWRI - R WRIST 3+ VIEW XRAY REASON: injury ORDER NUMBER(s): [id number], ACCESSION NUMBER(s): [id number] CLINICAL INDICATION: injury TECHNIQUE: XY R WRIST 3+ VIEW XRAY COMPARISON: None FINDINGS/IMPRESSION: : There is no evidence of acute fracture or dislocation. Soft tissues are unremarkable. ATED BY: ESTEVAN COX MD DICTATED DATE/TIME: 10/31/25 101 SIGNED BY: ESTEVAN COX MD SIGNED DATE/TIME: 10/31/25 101 CC: X-Ray, Labs, Meds, VS Comment EXTERNAL MEDICAL RECORDS REVIEWED: [NONE] INDEPENDENT HISTORIANS: [NONE] SOCIAL DETERMINANTS OF HEALTH: [NONE] LABS ORDERED: NONE REVIEWED AND INTERPRETED RESULTS: RT WRIST XR IMAGING ORDERED: RT WRIST XR TREATMENTS ORDERED: NONE PROCEDURES PERFORMED: NONE CRITICAL CARE TIME: NONE I HAVE DISCUSSED THE PATIENT WITH THE ATTENDING PHYSICIAN DR. WEST AND HE AGREES WITH THE PATIENT'S PLAN OF CARE AND DISPOSITION. BASED ON HISTORY OF PRESENT ILLNESS, AND PHYSICAL EXAM, PATIENT WILL BE DISCHARGED HOME. DISCUSSED PLAN FOR DISCHARGE HOME WITH RX NAPROSYN. MEDICATION WARNINGS GIVEN. SHARED DECISION MAKING: DISCUSSED WITH PATIENT THAT THEIR WORKUP WAS NORMAL. PATIENT INSTRUCTED TO FOLLOW UP WITH PRIMARY CARE PROVIDER IN 1-2 DAYS FOR RE- EVALUATION OF SYMPTOMS. PATIENT VERBALIZES UNDERSTANDING TO RETURN TO ED FOR NEW OR WORSENING SYMPTOMS OR IF FOLLOW UP WITH PCP CANNOT BE OBTAINED. PATIENT FEELS COMFORTABLE GOING HOME AT THIS TIME. ALL QUESTIONS ADDRESSED AT TIME OF DISCHARGE. Time of 1ST Reevaluation: 10:00 Reevaluation 1ST: Improved Patient Education/Counseling: Diagnosis, Treatment, Need For Follow Up Family Education/Counseling: Diagnosis, Treatment, No Family Present Medical Screening: No EMC Exist At This Time Departure 1 Departure Time of Disposition: 10:40 Impression: Primary Impression: Right wrist sprain Qualified Codes: S63.501A - Unspecified sprain of right wrist, initial encounter Disposition: 01 HOME / SELF CARE / HOMELESS Condition: Stable Additional Instructions: FOLLOW-UP WITH PCP IN 1 TO 2 DAYS. TAKE MEDICATIONS PRESCRIBED. RETURN TO ED FOR ANY NEW OR WORSENING SYMPTOMS. e-Prescriptions Naproxen (Naproxen) 500 Mg Tab 500 MG PO BID, #30 TAB Prov: CRISTOBAL TRUJILLO 10/31/25 Discharged With: Self Critical Care Note Critical Care Time?: No Stability Stability form required: No Heart Score Heart Score: Heart Score Response (Comments) Value History N/A 0 EKG N/A 0 Age N/A 0 Risk Factors N/A 0 Troponin N/A 0 Total 0 I personally scribed for CRISTOBAL TRUJILLO ([email or web address]) on 10/31/25 at 09:39. Electronically submitted by Constantino Martin ([email or web address]). I personally scribed for CRISTOBAL TRUJILLO ([email or web address]) on 10/31/25 at 10:19. Electronically submitted by Constantino Martin ([email or web address]). CRISTOBAL TRUJILLO Oct 31, 2025 09:39
--- NOTE | 2025-10-31 10:13 | DVH ---
CLINICAL INDICATION: injury TECHNIQUE: XY R WRIST 3+ VIEW XRAY COMPARISON: None FINDINGS/IMPRESSION: : There is no evidence of acute fracture or dislocation. Soft tissues are unremarkable.
[2025-10-31] MEDS ORDERED: NAPR-746 PO (10:24)
[2025-10-31 10:37] VITALS: BP 131/66; PULSE 97; RESP 18; TEMP 98.1; O2SAT 98
== END 2025-10-31 10:39 | disposition home or self-care (01) ==
LOC: ER 09:06
DX: S63.501A Unspecified sprain of right wrist, initial encounter (principal); Z79.899 Other long term (current) drug therapy; X50.0XXA Overexertion from strenuous movement or load, initial encounter; Y93.89 Activity, other specified; Y92.89 Other specified places as the place of occurrence of the external cause; Y99.8 Other external cause status
CPT/HCPCS: 73110

== ENCOUNTER 2025-11-03 20:36 | Emergency (ER) | payer MEDICAID ==
[~2025-11-03] VITALS: Ht 162.6 cm; Wt 82.9 kg
[~2025-11-03 20:36] MED LIST: NAPR-746 PO
--- NOTE | 2025-11-03 21:12 | ED.PDOC ---
History of Present Illness HPI Comments 20 y/o obese F presents with right wrist pain s/p work injury, today. Chief Complaint: Upper Extremity Time Seen by MD: 20:45 Reviewed Notes: Nurses Notes, Medications, Allergies Allergies: Coded Allergies: NO KNOWN ALLERGIES (Unverified , 07/08/25) Home Meds Active Scripts Naproxen (Naproxen) 500 Mg Tab, 500 MG PO BID, #30 TAB Prov:CRISTOBAL TRUJILLO 10/31/25 Information Source: Patient Mode of Arrival: Ambulatory Severity: Moderate Timing: Hours Duration: Since onset Prehospital treatment: None Past Medical History PAST MEDICAL HISTORY: Denies Surgical History: Denies all surgeries ENVIRONMENTAL SUSTAINABILITY MANAGER History: No Pertinent ENVIRONMENTAL SUSTAINABILITY MANAGER History Family History Family History: Reviewed,noncontributory to illness Social History Smoker: Non-Smoker Alcohol: Denies ETOH Use Drugs: Denies Drug Use Lives In: Home All Other Systems: Reviewed and Negative (as per HPI) Physical Exam General Appearance: No Apparent Distress, Obese HEENT: Pharynx Normal Neck: Full Range of Motion, Non-Tender Respiratory: Lungs Clear, No Respiratory Distress, Normal Breath Sounds Cardiovascular: No Edema, No JVD, No Murmur, No Gallop, Normal Peripheral Pulses, Regular Rate/Rhythm Breast Exam: Deferred Gastrointestinal: No Organomegaly, Non Tender, No Pulsatile Mass, Normal Bowel Sounds, Soft Genitalia: Deferred Pelvic: Deferred Rectal: Deferred Extremities: Normal capillary refill, Normal range of motion Musculoskeletal : Location: Right Extremity Location: Wrist (Tenderness palpated over right lateral wrist and forearm no noted ecchymosis abrasions or edema strength sensory motion intact positive radial pulse) Apperance: Normal Neurologic: Alert, No Motor Deficits, Normal Affect, Normal Mood, No Sensory Deficits Cerebellar Function: Normal Reflexes: NOT DONE Skin: Dry, Normal Color, Warm Lymphatic: No Adenopathy Was a procedure done? Was a procedure done?: No Differential Dx Considerations may include: fractures, sprain, strain, musculoskeletal pain, dislocations, among others X-Ray, Labs, Meds, VS Vital Signs Date Time Temp Pulse Resp B/P (MAP) Pulse Ox O2 Delivery O2 Flow Rate FiO2 11/03/25 22:01 91 19 96 Room Air 11/03/25 22:01 98.3 91 19 107/70 (82) 96 98.3 11/03/25 20:38 98.2 87 18 115/88 98 98.2 X-Ray, Labs, Meds, VS Comment Right wrist x-ray shows no acute fractures osseous lesions or dislocations. Patient placed in splint. [id number] Tylenol or Motrin as needed for the pain. Advised on rice. Advised to follow up with PCP for referral to ortho surgeon for consult and evaluation. Advised to keep the splint on until seen by ortho. Advised on ER return precautions, pt indicates understanding and agree with discharge plan of care. Images Reviewed?: Images reviewed and evaluated by me Time of 1ST Reevaluation: 20:45 Reevaluation 1ST: Unchanged Time of 2ND Reevaluation: 22:10 Patient Education/Counseling: Diagnosis, Treatment, Need For Follow Up Family Education/Counseling: No Family Present SEPSIS Sepsis Screen Date sepsis recognized/suspect: Nov 03, 2025 Time Sepsis recognized/suspect: 2041 Recent Procedure: No On Antibiotic Therapy: No Respiratory Rate >20: No Heart Rate >90: No Temp<36 C (96.8 F) or >38.3 C: No SBP <90 or MAP <65 mmHG: No New Acute Mental Status Change: No Is the patient on CPAP, BIPAP,: No Physician Orders R Wrist 3+ View Xray (11/03/25 20:45) Vital Signs Date Time Temp Pulse Resp B/P (MAP) Pulse Ox O2 Delivery O2 Flow Rate FiO2 11/03/25 22:01 91 19 96 Room Air 11/03/25 22:01 98.3 91 19 107/70 (82) 96 98.3 11/03/25 20:38 98.2 87 18 115/88 98 98.2 Departure 1 Departure Time of Disposition: 22:10 Impression: Primary Impression: Contusion of wrist, right Qualified Codes: S60.211A - Contusion of right wrist, initial encounter Disposition: HOME / SELF CARE / HOMELESS Condition: Stable e-Prescriptions Ibuprofen (Ibuprofen) 800 Mg Tab 800 MG PO Q8HP PRN for 6 Days, #18 TAB Prov: TALISHA HAND 11/03/25 Discharged With: Self Critical Care Note Critical Care Time?: No Stability Stability form required: No Heart Score Heart Score: Heart Score Response (Comments) Value History N/A 0 EKG N/A 0 Age N/A 0 Risk Factors N/A 0 Troponin N/A 0 Total 0 I personally scribed for CLAUDE HOOKER MD ([email or web address]) on 11/03/25 at 21:12. Electronically submitted by Raimundo Nassar ([email or web address]). CLAUDE HOOKER MD Nov 03, 2025 21:12 TALISHA HAND Nov 03, 2025 22:11
--- NOTE | 2025-11-03 21:38 | DVH ---
CLINICAL INDICATION: injury and pain TECHNIQUE: 3 radiographic views of the right wrist were obtained. COMPARISON: XY R WRIST 3+ VIEW XRAY on DOS: 10/31/25 FINDINGS/IMPRESSION: There are no fractures or dislocations Bony alignment is normal. There are no radiopaque foreign bodies.
[2025-11-03 22:01] VITALS: BP 107/70; PULSE 91; RESP 19; TEMP 98.3; O2SAT 96
[2025-11-03] MEDS ORDERED: IBUP-1456 PO (22:11)
== END 2025-11-03 23:23 | disposition home or self-care (01) ==
LOC: ER 20:36
DX: S60.211A Contusion of right wrist, initial encounter (principal); Z79.899 Other long term (current) drug therapy; X58.XXXA Exposure to other specified factors, initial encounter; Y93.89 Activity, other specified; Y92.89 Other specified places as the place of occurrence of the external cause; Y99.8 Other external cause status
CPT/HCPCS: 29125; 73110